=== PATIENT | female | born 1995 | race Caucasian/White ===

== ENCOUNTER 2021-08-27 22:03 | Emergency (ER) | payer SELFPAY ==
[2021-08-27 22:13] VITALS: BP 120/80; PULSE 75; TEMP 97.9; BMI 26.7
[2021-08-27] MEDS ORDERED: PROPARACAINE 0.5% OPHTH SOLN 15 ML BTL OD ONE (22:37)
[2021-08-27] MEDS ORDERED: FLUORESCEIN NA 1 EA STRIP OD ONE (22:38)
[2021-08-27] MEDS ORDERED: TETRACAINE 0.5% OPHTH SOLN 2 ML BOTTLE ONE (22:40)
[2021-08-27] MEDS ORDERED: TETRACAINE 0.5% OPHTH SOLN 2 ML BOTTLE OD ONE (22:40)
[2021-08-27] MEDS ORDERED: FLUORESCEIN NA 1 EA STRIP ONE (22:41)
== END 2021-08-27 23:21 | disposition home or self-care (01) ==
LOC: JER 22:03
DX: S05.01XA Injury of conjunctiva and corneal abrasion without foreign body, right eye, initial encounter (principal); Y99.8 Other external cause status
CPT/HCPCS: 99283-25